=== PATIENT | male | born 1960 | race Caucasian/White ===

== ENCOUNTER 2022-10-23 11:31 | Outpatient (REF) | payer MEDICAID, SELFPAY ==
[2022-10-23 19:45] LABS: ALT 35 U/L (16-63); AST 16 U/L (15-37); Alkaline Phosphatase 105 U/L (46-116); Anion Gap 9.8 mmol/L (3-11); BUN 27 mg/dL (7-18); Bilirubin, Total 0.2 mg/dL (0.2-1.0); CO2 27.2 mmol/L (21.0-32.0); Calcium 9.5 mg/dL (8.5-10.1); Calculated LDL 161 mg/dL (<100); Chloride 107 mmol/L (98-107); Cholesterol 224 mg/dL (<200); Estimated GFR 85.63 (mL/min/1.73m2); Glucose 114 mg/dL (74-106); HDL Cholesterol 47 mg/dL (40-60); Potassium 4.7 mmol/L (3.5-5.1); Sodium 144 mmol/L (136-145); Total Protein 7.9 g/dL (6.4-8.2); Triglyceride 80 mg/dL (<150)
== END 2022-10-23 11:32 | disposition home or self-care (01) ==
LOC: NCHCN 11:31
PROVIDERS: PCP Nurse Practitioner Family; Visit Provider Nurse Practitioner Family
DX: I10 Essential (primary) hypertension (principal); E78.5 Hyperlipidemia, unspecified; I25.10 Atherosclerotic heart disease of native coronary artery without angina pectoris
CPT/HCPCS: 80053; 80061

== ENCOUNTER 2023-04-25 11:52 | Outpatient (REF) | payer MEDICAID, SELFPAY ==
--- OUTSIDE RECORDS SUMMARY | 2023-04-25 11:53 | XMS_ITS | Continuity of Care Document ---
Author Name Unknown Organization [facility] Address [address] [place] [address] Care Team Providers Care Accounting Policy Consultant Name Role Phone Lizette Santacruz Primary Care Physician [phone] Encounter [facility] Date(s): 11/09/22 - 11/09/[address] [phone] [place] Discharge Disposition: Home or Self Care Attending Physician: Lizette Santacruz PROCESSING TECH Admitting Physician: Lizette Santacruz PROCESSING TECH Referring Physician: Lizette Santacruz PROCESSING TECH Patient Care team information Care Team Personnel Name: Lizette Santacruz PROCESSING TECH Position: PowerChart View Only Member Role: Primary Care Physician Address: Address: [address] [place] [id number]
--- OUTSIDE RECORDS SUMMARY | 2023-04-25 11:53 | XMS_ITS | Continuity of Care Document ---
Author Name Unknown Organization [facility] Address [address] [place] [address] Care Team Providers Care Hvac Services Professional Name Role Phone Lizette Santacruz Primary Care Physician [phone] Encounter [facility] Date(s): 10/30/22 - 10/30/22 [facility] [address] [place] [phone] [place] Assessment and Plan Future Appointments Patient Care team information Care Team Personnel Name: Lizette Santacruz COMPUTER OPERATIONS ANALYST Position: PowerChart View Only Member Role: Primary Care Physician Address: Address: [address] [place], [place] [address]
[2023-04-25 20:45] LABS: ALT 37 U/L (16-63); AST 18 U/L (15-37); Albumin 3.8 g/dL (3.4-5.0); Alkaline Phosphatase 99 U/L (46-116); Anion Gap 8.6 mmol/L (3-11); BUN 23 mg/dL (7-18); Bilirubin, Total 0.4 mg/dL (0.2-1.0); CO2 26.4 mmol/L (21.0-32.0); CREATININE 1.1 mg/dL (0.70-1.30); Calcium 9.8 mg/dL (8.5-10.1); Calculated LDL 104 mg/dL (<100); Chloride 104 mmol/L (98-107); Cholesterol 167 mg/dL (<200); Glucose 98 mg/dL (74-106); HDL Cholesterol 47 mg/dL (40-60); Potassium 4.5 mmol/L (3.5-5.1); Sodium 139 mmol/L (136-145); Total Protein 7.6 g/dL (6.4-8.2); Triglyceride 83 mg/dL (<150)
== END 2023-04-25 11:53 | disposition home or self-care (01) ==
LOC: NCHCN 11:52
PROVIDERS: PCP Nurse Practitioner Family; Visit Provider Nurse Practitioner Family
DX: I10 Essential (primary) hypertension (principal); E78.5 Hyperlipidemia, unspecified
CPT/HCPCS: 80053; 80061